=== PATIENT | male | born 1965 | race Hispanic/Latino ===

== ENCOUNTER 2018-09-10 10:53 | Emergency (ER) | payer OTHER ==
[2018-09-10] MEDS ORDERED: TORADOL IM ONE (13:36)
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
[2018-09-10 16:08] VITALS: BP 112/74
== END 2018-09-10 16:07 | disposition home or self-care (01) ==
LOC: ED 10:53
DX: M54.2 Cervicalgia (principal); V89.0XXA Person injured in unspecified motor-vehicle accident, nontraffic, initial encounter; Y93.89 Activity, other specified; Y92.411 Interstate highway as the place of occurrence of the external cause; Y99.8 Other external cause status
CPT/HCPCS: 72125; 96372; 99283; J1885